=== PATIENT | male | born 1955 | race Hispanic/Latino ===

== ENCOUNTER → 2022-01-24 | Outpatient (CLI) | payer OTHER | END | disposition home or self-care (01) | LOC: RAH 09:17 | PROVIDERS: ATTEND Orthopaedic Surgery | DX: T84.091A Other mechanical complication of internal left hip prosthesis, initial encounter (principal); X58.XXXA Exposure to other specified factors, initial encounter; Y93.89 Activity, other specified; Y92.89 Other specified places as the place of occurrence of the external cause; Y99.8 Other external cause status | CPT/HCPCS: 72192 ==

== ENCOUNTER → 2024-09-07 | Outpatient (CLI) | payer OTHER ==
--- NOTE | 2024-09-07 15:11 | HMCIMG ---
US CAROTID DUPLEX HISTORY: Occlusion COMPARISON: None TECHNIQUE: Duplex carotid arterial Doppler ultrasound study was performed. FINDINGS: The common, internal and external carotid arteries are visualized. The peak systolic velocities of right common carotid artery is 62 centimeters per second, right internal carotid artery is 95 centimeters per second, right external carotid artery is 155 centimeters per second, and right vertebral artery is 34 centimeters per second. Right internal carotid artery to right common carotid artery ratio is 1.5. Right vertebral artery is seen with antegrade flow. The peak systolic velocities of left common carotid artery is 73 centimeters per second, left internal carotid artery is 89 centimeters per second, left external carotid artery is 113 centimeters per second, and left vertebral artery is 42 centimeters per second. Left internal carotid artery to left common carotid artery ratio is 1.2. Left vertebral artery is seen with antegrade flow. There are bilateral echogenic plaques. IMPRESSION: 1. No hemodynamically significant lesion is seen of either extracranial carotid artery system.
== END | disposition home or self-care (01) ==
LOC: RAH 13:44
DX: I65.23 Occlusion and stenosis of bilateral carotid arteries (principal)
CPT/HCPCS: 93880